=== PATIENT | female | born 1985 | race African-American/Black ===

== ENCOUNTER 2022-09-22 11:27 | Emergency (ER) | payer MEDICAID ==
[~2022-09-22] VITALS: Ht 182.9 cm; Wt 99.8 kg
[2022-09-22] MEDS ORDERED: LORAZEPAM 1MG TABLET PO ONE (12:15)
[2022-09-22 12:41] LABS: BASOPHILS % 0.5 % (0.0-2.0); EOSINOPHILS % 0.3 % (0.0-5.0); HEMATOCRIT. 38.8 % (36.0-48.0); HEMOGLOBIN. 12.7 g/dL (12.0-16.0); LYMPHOCYTES % 30.8 % (20.0-50.0); MEAN CORPUSCULAR VOLUME 82.5 fL (81.0-99.0); MEAN PLATELET VOLUME 7.3 fl (7.4-10.4); MONOCYTES % 7.4 % (2.0-8.0); PLATELET 273 x1000/uL (130-400); RED BLOOD CELL COUNT 4.71 mill/uL (4.2-5.4); RED CELL DISTRIBUTION WIDTH 14.5 % (11.6-14.6)
[2022-09-22 12:57] LABS: CHLORIDE 106 mEq/L (98-107)
[2022-09-22 13:03] LABS: HCG SCREEN NEGATIVE
[2022-09-22 13:07] LABS: ETHANOL BLOOD < 10 mg/dL
[2022-09-22] MEDS ORDERED: IBUPROFEN 400MG TABLET PO ONE (15:30)
[2022-09-22 18:44] LABS: CLARITY URINE CLEAR (CLEAR); COLOR URINE YELLOW (YELLOW); KETONES URINE NEGATIVE (NEGATIVE); LEUKOCYTE ESTERASE URINE NEGATIVE (NEGATIVE); NITRITE URINE NEGATIVE (NEGATIVE); OCCULT BLOOD URINE NEGATIVE (NEGATIVE); PH URINE 6.5 (4.5-8.0); PROTEIN URINE NEGATIVE (NEGATIVE); SPECIFIC GRAVITY URINE 1.009 (1.005-1.030); UROBILINOGEN URINE 0.2 E.U./dL (0.2-1.0)
[2022-09-22] MEDS ORDERED: SERTRALINE HCL 100MG TABLET PO ONE (18:45)
[2022-09-22 18:56] LABS: *AMPHETAMINES SCREEN URINE NEGATIVE (NEGATIVE); *BARBITURATES SCREEN URINE NEGATIVE (NEGATIVE); *BENZODIAZEPINES SCREEN URINE NEGATIVE (NEGATIVE); *COCAINE SCREEN URINE NEGATIVE (NEGATIVE); CANNABINOID URINE SCREEN NEGATIVE (NEGATIVE); METHADONE URINE SCREEN NEGATIVE (NEGATIVE); OPIATES URINE SCREEN NEGATIVE (NEGATIVE); PHENCYCLIDINE URINE SCREEN NEGATIVE (NEGATIVE)
[2022-09-22] MEDS: TRAZODONE HCL 50MG TABLET PO SCH (22:30)
[2022-09-23] MEDS ORDERED: LORAZEPAM 1MG TABLET PO NR (10:15)
[2022-09-23] MEDS: SERTRALINE HCL 100MG TABLET PO SCH (10:43)
[2022-09-23] MEDS ORDERED: LORAZEPAM 1MG TABLET PO ONE (21:15)
[2022-09-24] MEDS: SERTRALINE HCL 100MG TABLET PO SCH (09:38)
[2022-09-24] MEDS ORDERED: LORAZEPAM 1MG TABLET PO ONE (12:00)
[2022-09-24] MEDS: TRAZODONE HCL 50MG TABLET PO SCH (21:42)
[2022-09-25] MEDS: SERTRALINE HCL 100MG TABLET PO SCH (09:00)
[2022-09-25] MEDS ORDERED: LORAZEPAM 1MG TABLET PO NR ×2 (10:45→14:00)
[2022-09-25] MEDS ORDERED: IBUPROFEN 800MG TABLET PO ONE (12:15)
[2022-09-25] MEDS: TRAZODONE HCL 50MG TABLET PO SCH (22:15)
[2022-09-26] MEDS ORDERED: LORAZEPAM 1MG TABLET PO SCH (11:00)
[2022-09-26] MEDS: SERTRALINE HCL 100MG TABLET PO SCH (11:18)
[2022-09-26] MEDS ORDERED: LORAZEPAM 1MG TABLET PO ONE (18:30)
[2022-09-26] MEDS: TRAZODONE HCL 50MG TABLET PO SCH (21:30)
[2022-09-27] MEDS ORDERED: LORAZEPAM 1MG TABLET PO NR (06:45)
[2022-09-27] MEDS: SERTRALINE HCL 100MG TABLET PO SCH ×2 (09:00→10:20)
[2022-09-27 14:10] VITALS: BP 124/70
== END 2022-09-27 15:10 | disposition home or self-care (01) ==
LOC: ER 11:29
DX: F41.9 Anxiety disorder, unspecified (principal); R45.851 Suicidal ideations; F31.9 Bipolar disorder, unspecified; F43.10 Post-traumatic stress disorder, unspecified; Z20.822 Contact with and (suspected) exposure to COVID-19; Z75.1 Person awaiting admission to adequate facility elsewhere
CPT/HCPCS: 36415; 80053; 80305; 80320; 81003; 84703; 85025; 87426; 99285; C9803; G0480